=== PATIENT | female | born 1965 | race Caucasian/White ===

== ENCOUNTER → 2017-04-08 | Outpatient (CLI) | payer OTHER | END | disposition home or self-care (01) | LOC: RD 15:44 | DX: M79.675 Pain in left toe(s) (principal) ==

== ENCOUNTER 2019-10-05 16:38 | Emergency (ER) | payer OTHER ==
[~2019-10-05] VITALS: Ht 162.6 cm; Wt 81.2 kg
[2019-10-05 17:03] VITALS: Ht 162.6 cm; Wt 81.2 kg
[2019-10-05 17:28] LABS: BASOPHIL % 1.3 % (0-2)
[2019-10-05 17:29] LABS: PLATELET COUNT 452 x10^3mcL (130-400); RED CELL DISTRIBUTION WIDTH 14.7 % (11.5-14.5)
[2019-10-05 17:46] LABS: CALCIUM 9.8 mg/dL (8.5-10.1); CARBON DIOXIDE 27.7 mmol/L (21-32); CHLORIDE SERUM 103 mmol/L (98-107); CREATININE SERUM 0.8 mg/dL (0.6-1.0); GFR1 > 60 mL/min; GLUCOSE SERUM 96 mg/dL (74-106); POTASSIUM SERUM 3.8 mmol/L (3.5-5.1); SODIUM SERUM 141 mmol/L (136-145)
[2019-10-05 17:50] LABS: ALBUMIN 3.6 g/dL (3.4-5.0); ALKALINE PHOSPHATASE 263 U/L (46-116); ALT/SGPT 257 U/L (14-59); AST/SGOT 157 U/L (15-37)
[2019-10-05 17:54] LABS: TOTAL PROTEIN, SERUM 9.1 g/dL (6.4-8.2)
[2019-10-05 18:16] LABS: BILIRUBIN TOTAL 1.9 mg/dL (0.20-1.00); LIPASE 233 IU/L (73-393)
[2019-10-05 19:57] LABS: UA SPECIFIC GRAVITY >=1.030 (1.005-1.035); microscopic required? YES; urine erythrocyte 2+ (NEGATIVE)
[2019-10-06 00:03] VITALS: BP 112/57
== END 2019-10-06 01:57 | disposition home or self-care (01) ==
LOC: ED 16:38
PROVIDERS: Emergency Medicine
DX: N12 Tubulo-interstitial nephritis, not specified as acute or chronic (principal); I10 Essential (primary) hypertension
CPT/HCPCS: 87804; C9113; J0696; J2405; J2765; J7030; J7060